=== PATIENT | male | born 1945 | race Caucasian/White ===

== ENCOUNTER 2016-03-26 07:55 | Day surgery (SDC) | payer MEDICARE ==
[~2016-03-26 07:55] MED LIST: DIPHENHYDRAMINE HCL 50 MG/ML VIAL ONE; NALOXONE HCL INJ/PF 0.4 MG/1 ML SDV ONE
[2016-03-26] MEDS ORDERED: FLUMAZENIL INJ 0.5 MG/5 ML VIAL IV ONE (07:56)
[2016-03-26] MEDS ORDERED: ONDANSETRON HCL INJ/PF 4 MG/2 ML SDV ONE (07:56)
[2016-03-26] MEDS ORDERED: PROMETHAZINE HCL INJ 25 MG/1 ML VIAL ONE (07:56)
[2016-03-26] MEDS ORDERED: EPINEPHRINE INJ 1 MG/10 ML DISP.SYRIN ONE (07:56)
[2016-03-26] MEDS ORDERED: GLUCAGON,HUMAN RECOMB 1 MG INJ ONE (07:57)
[2016-03-26] MEDS: MIDAZOLAM 2 MG/2 ML INJ ONE ×2 (08:55→08:59)
[2016-03-26] MEDS: FENTANYL CITRATE INJ/PF 100 MCG/2 ML AMPUL ONE ×2 (08:57→09:03)
--- NOTE | 2016-03-26 09:18 | Operative Report ---
Operative Report DATE OF SURGERY: 03/26/16 Operative Report: The risks, benefits and alternatives of the procedure including risks of bleeding, perforation requiring surgery are explained to the patient in detail and informed consent is obtained. Patient is taken back to the endoscopy suite. He is placed in a left lateral decubital position. Timeout is called. Conscious sedation medications are provided. A rectal examination is done which did not reveal any masses, tears or fissures. An Olympus videoscope was inserted into the patient's rectum. The scope was then gradually advanced all the way to the cecum. The cecum was identified by the usual anatomical landmarks including the ileocecal valve as well as the appendiceal office. Photodocumentation is obtained. Prep is good. Scope was then sequentially pulled back via the various segments of the colon including the ascending colon , hepatic flexure, transverse colon, splenic flexure, descending colon and finally into the rectosigmoid colon. Retroflexion maneuvers performed. PREOPERATIVE DIAGNOSIS: Diarrhea change of bowel habits POSTOPERATIVE DIAGNOSIS: Mild nonspecific colitis, sigmoid area. Inflammation noted on the right side rule out lymphocytic colitis OPERATION: Colonoscopy with biopsy SURGEON: BLANQUITA RODRÍGUEZ ANESTHESIA: Moderate Sedation - 3 mg of Versed, 50 g of fentanyl. TISSUE REMOVED OR ALTERED: Colon specimen removed COMPLICATIONS: None. ESTIMATED BLOOD LOSS: none. INTRAOPERATIVE FINDINGS: No masses, AVMs noted. Mild diverticulosis side of the colon. Internal hemorrhoids PROCEDURE: Patient tolerated procedure well. No immediate postprocedure complications are noted. Patient is discharged in good condition. Discharge date 03/26/2016. Discharge diet: Regular. Discharge activity: Regular. 2-3 week follow-up to discuss findings. Patient is instructed to call the office or proceed to the emergency room after any postprocedure issues. We'll follow-up on biopsies. We'll contact patient is anything unusual on biopsies.
[2016-03-26 10:23] VITALS: BP 126/66
== END 2016-03-26 10:25 | disposition home or self-care (01) ==
LOC: END 07:55
PROVIDERS: ATTEND Internal Medicine Gastroenterology
PROC: 0DBF8ZX Excision of Right Large Intestine, Via Natural or Artificial Opening Endoscopic, Diagnostic (ICD-10-PCS; principal; 2016-03-26 08:30)
DX: R19.4 Change in bowel habit (principal); I10 Essential (primary) hypertension; J43.9 Emphysema, unspecified; Z79.82 Long term (current) use of aspirin; Z79.899 Other long term (current) drug therapy; Z88.8 Allergy status to other drugs, medicaments and biological substances; Z88.1 Allergy status to other antibiotic agents
CPT/HCPCS: 45380; 88305 ×2; J2250; J3010; J0171; J1200; J1610; J2310; J2405; J2550; J3490

== ENCOUNTER 2017-04-25 10:04 | Emergency (ER) | payer MEDICARE ==
--- NOTE | 2017-04-25 10:54 | ER Document Report ---
ED Neck/Back Problem - General Chief Complaint: Back Injury Stated Complaint: BACK PAIN Time Seen by Provider: 04/25/17 10:53 Mode of Arrival: Medic Information source: Patient Notes: 72 yo male tripped while walking last night and feel on left side cuasing left low back pain. No saddle anesthesia, radiculopathy, chest pain, sob, hematuria, fever, or IV drug use. TRAVEL OUTSIDE OF THE [place] IN LAST 30 DAYS: No - Related Data Allergies/Adverse Reactions: amitriptyline HCl [From Elavil] Allergy (Unknown, Verified 03/26/16 08:20) ciprofloxacin [From Cipro] Allergy (Unknown, Verified 03/26/16 08:20) fluticasone [From Advair Diskus] Allergy (Unknown, Verified 03/26/16 08:20) salmeterol [From Advair Diskus] Allergy (Unknown, Verified 03/26/16 08:20) BLOOD THINNERS Allergy (Severe, Uncoded 03/26/16 08:20) EXCESSIVE BLEEDING Past Medical History - General Information source: Patient - Social History Smoking Status: Unknown if Ever Smoked Frequency of alcohol use: None Drug Abuse: None Lives with: Family Family History: Reviewed & Not Pertinent Patient has suicidal ideation: No Patient has homicidal ideation: No - Past Medical History Cardiac Medical History: Reports: Hx Atrial Fibrillation, Hx Hypercholesterolemia Pulmonary Medical History: Reports: Hx Bronchitis, Hx COPD, Hx Pneumonia Renal/ Medical History: Reports: Hx Benign Prostatic Hyperplasia. Denies: Hx Peritoneal Dialysis Malignancy Medical History: Reports Hx Lung Cancer GI Medical History: Reports: Hx Gastroesophageal Reflux Disease Psychiatric Medical History: Reports: Hx Dementia Surgical Hx: Negative - Immunizations Hx Diphtheria, Pertussis, Tetanus Vaccination: Yes Hx Pneumococcal Vaccination: 11/10/12 Review of Systems - Review of Systems Constitutional: No symptoms reported EENT: No symptoms reported Cardiovascular: No symptoms reported Respiratory: No symptoms reported Gastrointestinal: No symptoms reported Genitourinary: No symptoms reported Male Genitourinary: No symptoms reported Musculoskeletal: See HPI Skin: No symptoms reported Hematologic/Lymphatic: No symptoms reported Neurological/Psychological: No symptoms reported Physical Exam - Vital signs Vitals: Temp Pulse Resp BP Pulse Ox 98.9 F 106 H 16 136/76 H 96 04/25/17 10:17 04/25/17 10:17 04/25/17 10:17 04/25/17 10:17 04/25/17 10:17 Interpretation: Normal - General General appearance: Appears well, Alert In distress: None - HEENT Head: Normocephalic, Atraumatic Eyes: Normal Pupils: PERRL Neck: Supple. No: Lymphadenopathy - Respiratory Respiratory status: No respiratory distress Chest status: Nontender Breath sounds: Normal Chest palpation: Normal - Cardiovascular Rhythm: Regular Heart sounds: Normal auscultation Murmur: No - Abdominal Inspection: Normal Distension: No distension Bowel sounds: Normal Tenderness: Nontender Organomegaly: No organomegaly - Back Back: Normal, Tender - mid thoracic spine - Extremities General upper extremity: Normal inspection, Nontender, Normal color, Normal ROM , Normal temperature General lower extremity: Normal inspection, Nontender, Normal color, Normal ROM , Normal temperature, Normal weight bearing. No: Shona's sign - Neurological Neuro grossly intact: Yes Cognition: Normal Orientation: AAOx4 Pioneer Coma Scale Eye Opening: Spontaneous Pioneer Coma Scale Verbal: Oriented Pioneer Coma Scale Motor: Obeys Commands Pioneer Coma Scale Total: 15 Speech: Normal Motor strength normal: LUE, RUE, LLE, RLE Sensory: Normal - Psychological Associated symptoms: Normal affect, Normal mood - Skin Skin Temperature: Warm Skin Moisture: Dry Skin Color: Normal Course - Re-evaluation Re-evalutation: 04/25/17 11:02 will give him his hydromorphone 2 mg and propatent the known 225 mg from home at this time. 04/25/17 13:15 X-ray is negative for fracture he has spondylosis. Patient stood with assistance and pivoted into the wheelchair and his and sisters will call the local police to help him get into the house they have a walker and a wheelchair in the house and his states that she can care for him at home. - Vital Signs Vital signs: Temp Pulse Resp BP Pulse Ox 98.6 F 106 H 16 156/86 H 98 04/25/17 13:30 04/25/17 13:30 04/25/17 13:30 04/25/17 13:30 04/25/17 13:30 Discharge - Discharge Clinical Impression: Thoracic back pain Qualifiers: Chronicity: acute Back pain laterality: midline Qualified Code(s): M54.6 - Pain in thoracic spine Fall Qualifiers: Encounter type: initial encounter Qualified Code(s): W19.XXXA - Unspecified fall, initial encounter Condition: Good Disposition: HOME, SELF-CARE Instructions: Contusion ([facility]), Upper Back Strain ([facility]), Warm Packs ([facility]) Additional Instructions: warm compress give his pain medication as prescribed to er any concerns
--- NOTE | 2017-04-25 12:13 | RADIOLOGY REPORT (SQ) ---
EXAM DESCRIPTION: T SPINE AP/LAT COMPLETED DATE/TIME: 04/25/2017 11:46 am REASON FOR STUDY: fall yesterday, mid t spine pain COMPARISON: None. NUMBER OF VIEWS: Two views. TECHNIQUE: AP and lateral radiographic images acquired of the thoracic spine. LIMITATIONS: None. FINDINGS: MINERALIZATION: Normal. ALIGNMENT: Normal. No scoliosis. VERTEBRAE: No fracture or bone lesion. Maintained height, normal segmentation. DISCS: Multilevel disc space narrowing with osteophytes. HARDWARE: None in the spine. MEDIASTINUM AND SOFT TISSUES: Normal heart size and aortic contour. No soft tissue abnormality. VISUALIZED LUNG GRIDER: There is persistent complete opacification of left hemithorax. OTHER: No other significant finding. IMPRESSION: SPONDYLOSIS WITHOUT BONE LESION OR FRACTURE. TECHNICAL DOCUMENTATION: JOB ID: [id number] [employer]- All Rights Reserved Reading location - IP/workstation name: [email or web address]
[2017-04-25 13:31] VITALS: BP 156/86
== END 2017-04-25 13:31 | disposition home or self-care (01) ==
LOC: ER 10:04
DX: M54.6 Pain in thoracic spine (principal); M54.5 Low back pain; W19.XXXA Unspecified fall, initial encounter
CPT/HCPCS: 72070; 99284